=== PATIENT | male | born 1975 | race Caucasian/White ===

== ENCOUNTER 2020-04-29 01:25 | Emergency (ER) | payer SELFPAY ==
[~2020-04-29] VITALS: Ht 167.6 cm; Wt 90.7 kg
[2020-04-29 01:35] VITALS: BP 150/100
--- NOTE | 2020-04-29 01:38 | NUR ---
TO LOBBY A/W BED AMBULATORY
--- NOTE | 2020-04-29 03:04 | NUR ---
PT AMBULATED TO BED 11
--- NOTE | 2020-04-29 03:53 | NUR ---
ERMD AT BEDSIDE.
[2020-04-29 04:40] VITALS: BP 150/100
--- NOTE | 2020-04-29 04:40 | NUR ---
Patient discharged with v/s stable. Written and verbal after care instructions given and explained. Patient was seen and evaluated by MIGUEL Harris, patient is not in rolando cute distress at this time. No nursing interventions needed for this patient. Patient alert, oriented and verbalized understanding of instructions. Ambulatory with steady gait. All questions addressed prior to discharge. ID band removed. Patient advised to follow up with PMD. Rx of keflex, & ibuprofen given. Patient educated on indication of medication including possible reaction and side effects. Opportunity to ask questions provided and answered.
== END 2020-04-29 04:40 | disposition home or self-care (01) ==
LOC: MED 01:25
DX: J34.0 Abscess, furuncle and carbuncle of nose (principal); Z98.890 Other specified postprocedural states
CPT/HCPCS: 99283